=== PATIENT | male | born 1990 | race Caucasian/White ===

== ENCOUNTER 2019-01-31 14:05 | Emergency (ER) | payer OTHER ==
[2019-01-31 16:00] VITALS: BP 121/90
--- NOTE | 2019-01-31 16:55 | UC ---
Lower Extremity/Ankle HPI - HPI Summary HPI Summary: 28 y/o male presents to the urgent care c/o B/l posterior lower leg pain s/p work out w/ leg exercises at the [facility] 3 days ago. Pt reports he did 3 sets of exercises w/ his lower lower legs 3 days ago. He was sore after that, but was able to walk. yesterday he did some work out on the Bike and he was very sore after he finished. Then, after sitting for 45 min, he couldn't stand up due to severe pain. He applied some OTC topical oint for pain and massage. When he woke up this morning, he couldn't walk well due to severe pain. He has some relief when he walks by tip toes and w/ his knee bended. Pain is 9/10 when he touches his B/l lower legs or straightens his legs or tries to stand up. Pt denies numbness or tingling sensation over the lower extremities, SOB, chest pain, abdominal pain, N/V/D. - History of Current Complaint Chief Complaint: UCLowerExtremity Stated Complaint: LEG INJURY Time Seen by Provider: 01/31/19 16:41 Hx Obtained From: Patient Onset/Duration: Gradual Onset, Lasting Days - 1 day, Still Present, Worse Since - this morning unable to walk well do to pain Severity Initially: Mild Severity Currently: Moderate Pain Intensity: 9 Pain Scale Used: 0-10 Numeric Aggravating Factor(s): Standing, Ambulation Alleviating Factor(s): Rest, Elevation Able to Bear Weight: Yes - but walks tip toe - Risk Factors Gout Risk Factors: Negative DVT Risk Factors: Negative Septic Arthritis Risk Factor: Negative - Allergies/Home Medications Allergies/Adverse Reactions: Allergies Allergy/AdvReac Type Severity Reaction Status Date / Time No Known Allergies Allergy Verified 01/31/19 16:01 Home Medications: Home Medications Biotin 1,000 mcg PO DAILY 01/31/19 [History Confirmed 01/31/19] Cetirizine* [ZyrTEC 10 MG TAB*] 10 mg PO DAILY 01/31/19 [History Confirmed 01/31] PMH/Surg Hx/FS Hx/Imm Hx Previously Healthy: Yes - Pt denies PMHX - Surgical History Surgical History: Yes Surgery Procedure, Year, and Place: wisdom teeth - Family History Known Family History: Positive: Hypertension, Diabetes - Social History Occupation: Employed Full-time Lives: With Family Alcohol Use: Weekly Substance Use Type: Cocaine, Marijuana Smoking Status (MU): Current Some Day Smoker Review of Systems All Other Systems Reviewed And Are Negative: Yes Constitutional: Positive: Negative Skin: Positive: Negative Eyes: Positive: Negative ENT: Positive: Negative Respiratory: Positive: Negative Cardiovascular: Positive: Negative Gastrointestinal: Positive: Negative Genitourinary: Positive: Negative Motor: Positive: Negative Neurovascular: Positive: Negative Musculoskeletal: Positive: Decreased ROM - B/L lower leg, Other: - severe b/L lower leg pain s/p work out Neurological: Positive: Negative Psychological: Positive: Negative Is Patient Immunocompromised?: No Physical Exam - Summary Physical Exam Summary: Vital Signs Reviewed: Yes Appearance: Well-Appearing, No Pain Distress, Well-Nourished,male sitting in the examining table w/o any apparent pain distress Eyes: Positive: Conjunctiva Clear - PERRLA< PAOLO, fundi grossly WNL ENT: Positive: Normal ENT inspection, Hearing grossly normal, Pharynx normal, TMs normal, Uvula midline Neck: Positive: Supple, Nontender, No Lymphadenopathy Respiratory: Positive: Chest non-tender, Lungs clear, Normal breath sounds, No respiratory distress Cardiovascular: Positive: RRR, No Murmur, Pulses Normal, Brisk Capillary Refill Abdomen Description: Positive: Nontender, No Organomegaly, Soft. Negative: CVA Tenderness (R), CVA Tenderness (L) Bowel Sounds: Positive: Present Extremities: B/L extremity without deformity or asymmetry when compared. No soft tissue swelling or edema. No overlying erythema, warmth, discoloration. No lesions or break in skin integrity. Diameter of calves same. Soft tissues of posterior lower legs are soft, supple, w/ severe tenderness on palpation of both lower posterior calves. No palpable cords or evidence of thrombophlebitis. No evidence of gangrene. Medial thigh or posterior is without soft tissue swelling or tender to palpation. Positive Homans sign. No proximal lymphangitis or lymphadenopathy. Positive sensation over B/l lower legs, positive pulses, capillary refill intact and brisk. Neurological Exam: Normal Psychological Exam: Normal Skin Exam: Normal Triage Information Reviewed: Yes Vital Signs: Initial Vital Signs Temp 98.4 F 01/31/19 15:54 Pulse 81 01/31/19 15:54 Resp 16 07/10/19 15:54 BP 121/90 01/31/19 15:54 Pulse Ox 99 01/31/19 15:54 Lower Extremity Course/Dx - Course Course Of Treatment: 28 y/o male presents to the urgent care c/o B/l posterior lower leg pain s/p leg work out exercises at the [facility] 3 days ago. Pt reports he did 3 sets of exercises w/ his lower lower legs 3 days ago. He was sore after that, but was able to walk. yesterday he did some work out on the Bike and he was very sore after he finished. Then, after sitting for 45 min, he couldn't stand up due to severe pain. He applied some OTC topical oint for pain and massage. When he woke up this morning, he couldn't walk well due to severe pain. He has some relief when he walks by tip toes and w/ his knee bended. Pain is 9/10 when he touches his B/l lower legs or straightens his legs or tries to stand up. Pt denies numbness or tingling sensation over the lower extremities, SOB, chest pain, abdominal pain, N/V/D. Hx obtained. Pt w/B/L extremity without deformity or asymmetry when compared. No soft tissue swelling or edema. No overlying erythema, warmth, discoloration. No lesions or break in skin integrity. Diameter of calves same. Soft tissues of posterior lower legs are soft, supple , w/ severe tenderness on palpation of both lower posterior calves. No palpable cords or evidence of thrombophlebitis. No evidence of gangrene. Medial thigh or posterior is without soft tissue swelling or tender to palpation. Positive Homans sign. No proximal lymphangitis or lymphadenopathy. Positive sensation over B/l lower legs, positive pulses, capillary refill intact and brisk on examination. Due to Pt's severe pain I think Pt needs a higher level of care to r/o rhabdomyolis vs compartment syndrome. There is the possibility of severe muscle strain. Also I think At his age DVT is less likely. UA ordered; trace blood. Pt's symptoms discussed w/ Dr Herbert who evaluated PT and agrees Pt should go to the ER for further evaluation and treatment. Pt educated on Rhabdomyolisis and Compartment syndrome and importance to rule them out since he is concerned on the cost of the ER visit. Pt also offered Ambulance transferred and he declined. He was also offered crutches and he declined. Pt then stated he will go to the ER by private car after talking to his mother. Pt left the clinic hemodynamically stable, A&OX3 and ambulating. - Differential Dx/Diagnosis Differential Diagnosis/HQI/PQRI: Compartment Syndrome, Contusion, Sprain, Strain , Tendonitis, Other - muscle strain. Rhabdomyolisis Provider Diagnosis: Bilateral lower extremity pain Discharge - Sign-Out/Discharge Documenting (check all that apply): Patient Departure All imaging exams completed and their final reports reviewed: No Studies - Discharge Plan Condition: Stable Disposition: HOME-RECOMMEND TO ED Patient Education Materials: Rhabdomyolysis (ED), Leg Pain (ED) Referrals: [facility] [Outside] - 1 Day Additional Instructions: I think you need a higher level or care for your presenting symptoms due to your severe b/l lower leg pain. I highly recommend you to go to the ER for further evaluation and treatment. The risks of not going can be , Rhabdomyolysis, kidney failure, or compartment syndrome. - Billing Disposition and Condition Condition: STABLE Disposition: Home-Recommend to ED
[2019-01-31] MEDS ORDERED: Ibuprofen TAB* 400 MG PO ONE (17:21)
== END 2019-01-31 18:06 | disposition home health service (06) ==
LOC: UCEAST 14:05
DX: M79.662 Pain in left lower leg (principal); M79.661 Pain in right lower leg; F17.210 Nicotine dependence, cigarettes, uncomplicated
CPT/HCPCS: 81003; 99202; A9270-GY; G0463

== ENCOUNTER 2019-01-31 19:09 | Observation (INO) | payer OTHER ==
--- NOTE | 2019-01-31 20:01 | ED ---
Lower Extremity - HPI Summary HPI Summary: Pt is a 28 y/o M presenting to the ED with a chief complaint of pain in the bilateral posterior knees onset yesterday, 01/30/19. He states he was doing leg workouts this week, starting on 01/29/19, and did another on 01/30/19. He thought he was fine, then went to lunch where he sat for about 45 minutes, and then he could not stand afterwards d/t pain behind his knees. Icy Hot patches and icing the area does not work, and he went to this morning, who sent him here to rule out rhabdomyolysis. He denies pain anywhere else, rashes, burning, numbness, or tingling. He reports some slight decreased ROM along with myalgia behind his bilateral knees , rated at a 9/10 when he is standing. Dorsiflexion increases the pain, rest decreases the pain. - History of Current Complaint Chief Complaint: EDExtremityLower Stated Complaint: PAIN IN LEGS, FROM CC PER PT Time Seen by Provider: 01/31/19 19:45 Hx Obtained From: Patient Mechanism Of Injury: Unknown Onset of Pain: Days Onset/Duration: Still Present Severity Initially: Moderate Severity Currently: Severe Pain Intensity: 8 Pain Scale Used: 0-10 Numeric Timing: Constant, Lasting Days Location: Is Discrete @ - behind bilateral knees, proximal calves Associated Signs And Symptoms: Positive: Knee Pain. Negative: Bruising Aggravating Factor(s): Ambulation Alleviating Factor(s): Rest Able to Bear Weight: Yes - with trouble - Allergies/Home Medications Allergies/Adverse Reactions: Allergies Allergy/AdvReac Type Severity Reaction Status Date / Time No Known Allergies Allergy Verified 01/31/19 16:01 PMH/Surg Hx/FS Hx/Imm Hx Previously Healthy: Yes Endocrine/Hematology History: Denies: Hx Diabetes Cardiovascular History: Denies: Hx Hypertension - Surgical History Surgery Procedure, Year, and Place: wisdom teeth - Immunization History Date of Tetanus Vaccine: unk Date of Influenza Vaccine: unk Infectious Disease History: No Infectious Disease History: Denies: Traveled Outside the [place] in Last 30 Days - Family History Known Family History: Positive: Hypertension, Diabetes - Social History Occupation: Student Alcohol Use: Weekly Hx Substance Use: Yes Substance Use Type: Reports: Cocaine, Marijuana Hx Tobacco Use: Yes Smoking Status (MU): Current Some Day Smoker Review of Systems Positive: Myalgia, Decreased ROM. Negative: Edema Negative: Rash, Bruising Negative: Numbness All Other Systems Reviewed And Are Negative: Yes Physical Exam - Summary Physical Exam Summary: Appearance: Well-appearing, Well-nourished, lying in bed comfortable Skin: Warm, dry, no obvious rash Eyes: sclera anicteric, no conjunctival pallor ENT: mucous membranes moist Neck: deferred Respiratory: No signs of respiratory distress Cardiovascular: Appears well perfused, pulses are nml Abdomen: deferred Musculoskeletal: There is localized tenderness over the proximal calf. The muscle is soft, there are no surface changes or edema of the legs, and pulses in the feet are nml. Neurological: Awake and alert, mentation is normal, speech is fluent and appropriate Psychiatric: affect is normal, does not appear anxious or depressed Triage Information Reviewed: Yes Vital Signs On Initial Exam: Initial Vitals Temp Pulse Resp BP Pulse Ox 99.1 F 82 18 144/98 99 01/31/19 19:11 01/31/19 19:11 01/31/19 19:11 01/31/19 19:11 01/31/19 19:11 Vital Signs Reviewed: Yes Diagnostics - Vital Signs Vital Signs Temp Pulse Resp BP Pulse Ox 01/31/19 19:11 99.1 F 82 18 144/98 99 - Laboratory Result Diagrams: 01/31/19 20:23 01/31/19 20:23 Lab Statement: Any lab studies that have been ordered have been reviewed, and results considered in the medical decision making process. - Ultrasound DVT US Ultrasound Interpretation Completed By: Radiologist Summary of Ultrasound Findings: No bilateral LE DVT. ED physician has reviewed this report. Lower Extremity Course/Dx - Course Course Of Treatment: Pt is a 28 y/o M presenting to the ED with a chief complaint of pain in the bilateral posterior knees onset yesterday, 01/30/19. He denies pain anywhere else, rashes, burning, numbness, or tingling. He reports some slight decreased ROM along with myalgia behind his bilateral knees, rated at a 9/10 when he is standing. Dorsiflexion increases the pain, rest decreases the pain. On exam, the pt has localized tenderness over the proximal calf. The muscle is soft, there are no surface changes or edema of the legs, and pulses in the feet [place] [address]. 2205 - I spoke with Dr. Luu who will be accepting the pt to [facility] with a dx of rhabdomyolysis. DVT US shows no bilateral LE DVT. - Diagnoses Provider Diagnoses: Rhabdomyolysis Discharge - Sign-Out/Discharge Documenting (check all that apply): Patient Departure Patient Received Moderate/Deep Sedation with Procedure: No - Discharge Plan Condition: Stable Disposition: ADMITTED TO [facility] - Billing Disposition and Condition Condition: STABLE Disposition: Admitted to [facility] - Attestation Statements Document Initiated by Nemoibe: Yes Documenting Scribe: Yin Buckley Provider For Whom Jacy is Documenting (Include Credential): Cedrick Goff MD. Scribe Attestation: Yin Person, scryennyed for Cedrick Goff MD. on 02/01/19 at 0455. Scribe Documentation Reviewed: Yes Provider Attestation: The documentation as recorded by the scribe, Yin Buckley accurately reflects the service I personally performed and the decisions made by me, Cedrick Goff MD. Status of Scribe Document: Viewed Consult Consult: 2205 - I spoke with Dr. Luu about the pt's present condition. He states he will be accepting the pt to [facility] with dx of rhabdomyolysis.
[2019-01-31 20:31] LABS: ABS Basophils 0.1 10^3/ul (0-0.2); ABS Eosinophils 0.2 10^3/ul (0-0.6); ABS Lymphocytes 1.8 10^3/ul (1.0-4.8); ABS Monocytes 0.6 10^3/ul (0-0.8); ABS Neutrophils 4.8 10^3/ul (1.5-7.7); Eosinophil % 2.9 %; Hematocrit 45 % (42-52); Hemoglobin 15.2 g/dL (14.0-18.0); Lymphocyte % 24.6 %; Mean Corpuscular HGB Conc 34 g/dL (31-36); Mean Corpuscular Hemoglobin 30 pg (27-31); Mean Corpuscular Volume 89 fL (80-94); Mean Platelet Volume 7.2 fL (7.4-10.4); Nucleated Red Blood Cells % 0.1; Platelet Count 358 10^3/uL (150-450); Red Blood Count 5.03 10^6 /uL (4.18-5.48); Red Cell Distribution Width 13 % (10-15); White Blood Count 7.5 10^3/uL (3.5-10.8)
[2019-01-31 20:46] LABS: BUN/Creatinine Ratio 18.3 (8-20); Calcium 9.5 mg/dL (8.6-10.3); EGFR African American 116.2 (>60); EGFR Non-African American 96.1 (>60); Potassium 3.8 mmol/L (3.5-5.0)
[2019-01-31] MEDS ORDERED: Sodium Bicarbonate 8.4% IV* 150 MEQ in D5W 1000 ML BAG* 1,000 ML IV ONE (22:00)
[2019-01-31] MEDS ORDERED: D5W 1000 ML BAG* 1,000 ML ONE (22:06)
[2019-01-31] MEDS: NS 0.9% 1000 ML** 3,000 ML IV ONE (22:07)
[2019-01-31] MEDS ORDERED: Acetaminophen TAB* 325 MG PO PRN (22:52)
[2019-02-01] MEDS: NS 0.9% 1000 ML** 1,000 ML IV SCH ×3 (00:30→13:16)
[2019-02-01] MEDS: NS 0.9% 1000 ML** 3,000 ML IV ONE ×2 (00:31→02:00)
[2019-02-01 06:53] LABS: ABS Basophils 0.1 10^3/ul (0-0.2); ABS Eosinophils 0.2 10^3/ul (0-0.6); ABS Lymphocytes 2.3 10^3/ul (1.0-4.8); ABS Monocytes 0.6 10^3/ul (0-0.8); ABS Neutrophils 3.3 10^3/ul (1.5-7.7); Eosinophil % 3.2 %; Hematocrit 39 % (42-52); Hemoglobin 13.5 g/dL (14.0-18.0); Mean Corpuscular HGB Conc 34 g/dL (31-36); Mean Corpuscular Hemoglobin 31 pg (27-31); Mean Corpuscular Volume 89 fL (80-94); Mean Platelet Volume 7.3 fL (7.4-10.4); Platelet Count 290 10^3/uL (150-450); Red Blood Count 4.38 10^6 /uL (4.18-5.48); Red Cell Distribution Width 13 % (10-15); White Blood Count 6.5 10^3/uL (3.5-10.8)
[2019-02-01 07:10] LABS: BUN/Creatinine Ratio 19.4 (8-20); Calcium 8.5 mg/dL (8.6-10.3); EGFR African American 169.7 (>60); EGFR Non-African American 140.2 (>60); Potassium 3.8 mmol/L (3.5-5.0)
--- NOTE | 2019-02-01 09:24 | HP ---
CC: [facility] on [facility] ADMISSION HISTORY AND PHYSICAL: DATE OF ADMISSION: 01/31/19 CHIEF COMPLAINT: Leg pain. HISTORY OF PRESENT ILLNESS: Mr. Vásquez is a 28-year-old male with no past medical history who has be en visiting [place] for a summer academic session. He returned to the gym 2 days ago after some time away and did some upper and lower body workout on the 01/29/19 and another strenuous lower body weigh t lifting workout on 01/30/19. Earlier today on 01/31/19, he had severe pain behind both knees that were rated at 9/10 when weightbearing and vertical. Because he could barely walk, [facility] At the urgent care, there was concern if he had DVT verus rhabdo myolysis versus tendon strain and he was sent to the emergency department for further evaluation. Th e patient denies any history of leg pain of similar nature, although he has been sore after workouts in the past, which he considered normal. Denies any muscle disease or history of blood clots. There was no trauma to his legs. PAST MEDICAL HISTORY: None. PAST SURGICAL HISTORY: [place] teeth removal. MEDICATIONS ON ADMISSION: 1. Biotin [id number]. 2. Zyrtec 10 mg p.o. daily p.r.n. ALLERGIES: None. FAMILY HISTORY: Notable for mother and father alive and well. Maternal grandfather had a heart arrh ythmia and was on warfarin and the maternal grandmother had diabetes. 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 He is s ayse, but has a male partner with whom he is not monogamous. He states he wears condoms when he has other partners. No children. He smokes cigarettes socially. He drinks alcohol about 1 time per wee k and he has marijuana fairly regularly, but not daily. REVIEW OF SYSTEMS: The patient has had no fevers, weight loss, or anorexia. He did have a sore thro at, a strep throat 4 weeks ago and finished a course of penicillin about 3 weeks ago. The patient de nies any cough, hemoptysis, or shortness of breath. The patient denies any nausea, vomiting, or diar stacey. The patient denies any chest pain or palpitations. Remainder of the 14-point review of system s was negative other than mentioned in the HPI. PHYSICAL EXAMINATION GENERAL: He is alert, in no acute distress. VITAL SIGNS: Temperature is 37.7, pulse 82, respirations 18, blood pressure is 144/98 down to 107/63 , O2 sat is 94%. HEENT: Head is normocephalic and atraumatic. Sclerae anicteric. Pupils are equal, round, and react sonia to light and accommodation. Oropharynx is moist, no lesions. NECK: No JVD, no carotid bruits, no thyromegaly. LUNGS: Clear to auscultation and percussion bilaterally. HEART: Regular rate and rhythm without murmurs or gallops. ABDOMEN: Soft and nontender. Positive bowel sounds. No hepatosplenomegaly. EXTREMITIES: No peripheral edema. There is tenderness in the popliteal fossa and just distal to marcella t in both legs symmetrically. There is no erythema or edema noted in the lower extremities. SKIN: No rashes. NEUROLOGIC: Alert and oriented x3. Cranial nerves II through XII were intact. Motor strength is 5/5 throughout when supine in bed. All extremities are moving with equal power. LABORATORY DATA: Sodium 138, potassium 3.8, chloride 103, bicarb 27, BUN 17, creatinine 0.93, gluco se 113. White count 7.5, hemoglobin 15.2, hematocrit 45%, platelets are 358, CPK is 15,044. Lower e xtremity Doppler is negative for DVT in both lower extremities. ASSESSMENT AND PLAN: A 28-year-old man presenting with rhabdomyolysis after a strenuous workout. He may have some genetic predisposition to this, although it has not occurred in the past. He may simp ly have overdone his workouts extremely and needs to go more slowly the next time that he returns to the gym. In any case, the patient will be admitted due to the risk of renal failure from rhabdomyoly sis. He has had 1 L of bicarbonate solution in the emergency department to alkalize his urine and he can continue on intravenous normal saline at a brisk rate to try to prevent any acute tubular necrosi s in the kidneys. I will check a CK and kidney enzymes again in the morning and we will follow this daily as long as he is here. The patient was advised he may be here 1 or 2 days or longer to assure t hings come out alright. Code status is full. DVT prophylaxis will be with early ambulation. [id number]/[facility] #: [id number]
[2019-02-01 10:03] LABS: HIV 4th Generation Negative (Negative)
[2019-02-01 11:45] VITALS: BP 131/71
--- NOTE | 2019-02-01 15:09 | CONS ---
CONSULTATION REPORT: DATE OF CONSULTATION: 02/01/19 ATTENDING ORTHOPEDIC PROVIDER: Freddy Vincent MD CHIEF COMPLAINT: Bilateral lower extremity pain. HISTORY OF PRESENT ILLNESS: Mr. Vásquez is a 28-year-old male who presented to [facility] on 01/[facility]19 with a complaint of bilateral calf pain following workouts done on 01/29/19 and 01/30/19. He states that on 01/29/19, he did a strenuous lower extremity lifting workout including calf raises, hamstring curls, and quad extension. 01/30 he rode the exercise bike followed by sitting for lunch, after which he was unable to stand up without severe pain in both calves. He was eventually able to walk home though had to walk gently and on his toes to avoid extreme pain in both calves. On 01/31/19, he went to urgent care and he was sent to the emergency room for further evaluation, where he was admitted and diagnosed with rhabdomyolysis. Orthopedics has been consulted to rule out compartment syndrome. Today, the patient states that pain is dramatically decreased from yesterday. At rest, both calves are non- painful. With active stretch or with standing, he has soreness rated at 3/10. He continues to feel most comfortable walking on his toes as when walking his normal gait, he has a sore stretching pain in both calves. He has no numbness or tingling of the lower extremities. There is no history of trauma to the lower extremities. PAST MEDICAL HISTORY: None. PAST SURGICAL HISTORY: [place] tooth extraction. MEDICATIONS: 1. Biotin. 2. Zyrtec 10 mg daily p.r.n. ALLERGIES: No known drug allergies. FAMILY HISTORY: Mother and father alive and well. SOCIAL HISTORY: Alcohol 1 time per week. Regular marijuana use, but not daily. Smokes cigarettes socially. At [place] for the summer for a criticism series. 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 REVIEW OF SYSTEMS: General: Negative for fever, chills, or recent illness. HEENT: Negative for any headache, changes in vision, or head trauma. Cardiac: No chest pain or history of IL. Respiratory: No shortness of breath. Abdomen: No abdominal pain, nausea, vomiting, or diarrhea. : No dysuria. Musculoskeletal: Positive for bilateral calf pain. Neuro: Sensation is intact throughout all extremities without any numbness or any paraesthesias. Hematology: No history of blood clot. Skin: No rash or lesions. PHYSICAL EXAM: Vital Signs: Temperature 98.8, pulse rate 67, respiratory rate 20, oxygen saturation 100% on room air, blood pressure 121/71. General: The patient appears well, in no acute distress, sitting comfortably in bed. Respiratory: Normal rate and effort of breathing. Abdomen: Nondistended and nontender. Musculoskeletal: Bilateral upper extremities; skin envelope intact, no obvious deformity, nontender to palpation, active flexion and extension of digits, wrists, elbows, and shoulders without any pain. Bilateral lower extremities; skin envelope is intact, no obvious bony deformity. Extremities are warm, supple, and well perfused. All compartments of bilateral lower legs are compressible with only mild tenderness with deep palpation of the calves. Upper leg compartments also all compressible and nontender. The patient has full passive flexion and extension at MTPs, ankles, knees, and hips without any pain whatsoever. He is also able to actively flex and extend through full range of motion MTPs, ankles, knees, and hips with tight stretching sensation experienced with ankle dorsiflexion, but no pain. Sensation is intact to light touch throughout bilateral lower extremities. Capillary refill is less than 2 seconds throughout bilateral lower extremities. There is no mottling. DP, PT, and popliteal pulses are 2+ and easily palpable bilaterally. The patient is able to stand flat footed at the bedside with minimal discomfort in the calves. DIAGNOSTIC STUDIES/LAB DATA: Venous Doppler of bilateral lower extremities was negative for DVT. Labs: Hemoglobin 13.5, hematocrit 39. Sodium 141, potassium 3.8. Total CK 10, 421. Creatinine 0.67, GFR 140. ASSESSMENT: Rhabdomyolysis without evidence for compartment syndrome. PLAN: The patient can be weightbearing as tolerated. He should continue IV fluids as directed by Medicine. He should continue increased p.o. fluid intake. Follow with Orthopedic in [address] Vincent, sooner with concerns or worsening of symptoms. ARNAUD HUTCHINSON [id number]/[facility] #: [id number] [facility] HOSPITALMatthew
--- NOTE | 2019-02-01 17:41 | DS ---
ADDENDUM NOW INCLUDED ON THIS REPORT CC: [facility]; Dr. Jose Evans * DISCHARGE SUMMARY: DATE OF ADMISSION: 01/31/19 DATE OF DISCHARGE: 02/01/19 PRIMARY CARE PROVIDER: [facility]. MY ATTENDING WHILE IN THE HOSPITAL: Dr. Jose Evans.* (DICTATED BY ARNAUD MERRILL) CHIEF COMPLAINT: Rhabdomyolysis, bilateral lower extremity pain. SECONDARY DISCHARGE DIAGNOSIS: None. STUDIES DONE WHILE IN THE HOSPITAL: Lower extremity venous Doppler study from 01/31/19 read as no bilateral lower extremity deep vein thrombosis. MEDICATIONS AT DISCHARGE: 1. Zyrtec 10 mg p.o. daily as needed. 2. Biotin 1000 mcg p.o. daily. 3. Tylenol 650 mg p.o. q.4 hours as needed. NEW MEDICATIONS AT DISCHARGE: Tylenol. MEDICATIONS DISCONTINUED ON DISCHARGE: None. HOSPITAL COURSE: This is a brief summary of the patient's presentation. For more details, please see the history and physical from Dr. Luis Armando Luu on 06/12. In brief, the patient is a 28-year-old male with no significant past medical history, who recently had significantly increased his exercise regimen, having added in lower body workout with weightlifting, which he did very strenuously 2 days ago and then on the morning of 01/31/19, biked on stationary bike for approximately half an hour, but that was almost not present when resting, worse with dorsiflexion. The patient could barely walk, went to the urgent care and was referred to the emergency department for concern of rhabdomyolysis. In the emergency department, the patient was found to have a creatinine kinase of approximately 15,000. There was some concern for compartment syndrome in the emergency department, but that is low clinical suspicion. The patient was admitted to the hospital, was started on fluids. The patient's creatinine kinase declined from 15,000 to 10,000. Over the course of several hours, the patient's pain decreased significantly. The patient was able to walk to the bathroom and back numerous times. The patient felt very well. The patient had no renal dysfunction. The patient felt like he was ready to go home. The patient was stable enough for discharge on 02/01/19. PHYSICAL EXAMINATION ON THE DAY OF DISCHARGE: General: The patient is a 28- year- old male who appears stated age and is sitting comfortably in the bed, in no acute distress. Vital signs: At the time of evaluation, temperature 98.8, pulse rate 67, respiratory rate 20, oxygen saturation 100% on room air, blood pressure 131/71. HEENT: Head: Normocephalic, atraumatic. Sclerae anicteric. No conjunctival injection. Nasal mucosa moist. Oral mucosa moist. No pharyngeal erythema, discharge, or exudate. Neck: Supple and nontender. No lymphadenopathy. No carotid bruits auscultated. No JVD. Cardiac: Regular rate and rhythm. No clicks, murmurs, gallops, or rubs. Pulses are 2+ in the bilateral dorsalis pedis, posterior tibialis and radial areas. Respiratory: Clear to auscultation bilaterally. No wheezes, rales, or rhonchi. Good air exchange bilaterally. Abdomen: Soft, nontender, nondistended. Bowel sounds present. Normoactive in all 4 quadrants. No hepatosplenomegaly. No abdominal bruits auscultated. No hepatojugular reflux. Genitourinary: No suprapubic or CVA tenderness. Skin: Clean, dry and intact. No rash. Neuro: Cranial nerves II through XII intact. No focal deficits. Alert and oriented x3. Musculoskeletal: Bilateral calves tender to palpation, fluid collection palpated in the posterior aspect of the right calf. Pain with dorsiflexion on bilateral feet. Calves not tense. DISCHARGE PLAN: The patient will be discharged to home. The patient has been encouraged to drink large volume of fluids which he feels capable of doing, is not having nausea, vomiting or other limiting factor in this regard. The patient should follow up with the [facility] or [facility] within 1 week. The patient should follow up with Orthopedics within this time as well. The patient should return to the hospital for worsening in his pain, oliguria or anuria, passing out, chest pain, shortness of breath, or other alarming symptoms. The patient should have a regular unrestricted diet. Engage in activity as tolerated. Avoiding excessive exercise in the short term and escalating slowly up subsequent exercise regimens. The patient had no JESSICA throughout his hospitalization and was stable for discharge to home. The patient should follow up CK and BMP at followup appointment at the discretion of the outpatient provider. TIME SPENT: Approximately 60 minutes was spent on the discharge of this patient , 30 of which were spent [id number] with the patient, obtaining my history and physical, and discussing my treatment plan. ARNAUD MERRILL ADDENDUM: The patient has a Shirley score of 0, indicating a less than 3% risk of , JESSICA requiring renal replacement therapy, and did not require further monitoring in the hospital for safe discharge based on no poor prognosis factors. ARNAUD MERRILL [id number]/[facility] #: [id number]/CPS #: [id number] FRANCIS
--- NOTE | 2019-02-01 18:31 | DS ---
DISCHARGE SUMMARY: ADDENDUM: The patient has a Shirley score of 0, indicating a less than 3% risk of , JESSICA requiring renal replacement therapy, and did not require further monitoring in the hospital for safe discharge based on no poor prognosis factors. ARNAUD MERRILL [id number]/[facility] #: [id number] FRANCIS
--- NOTE | 2019-02-03 21:37 | CONSULT ---
Consult Consult: Agree with consultation note by ARNAUD Craig, on 02/01/19. No evidence of compartment syndrome by report. We recommend aggressive hydration for the rhabdomyolysis and follow up with me in clinic in approximately 1 week.
== END 2019-02-01 16:15 | disposition home or self-care (01) ==
LOC: ED 19:09 → MED 22:51 → INTOOBSV 22:51
PROVIDERS: ADMIT Internal Medicine; ATTEND Internal Medicine
DX: M62.82 Rhabdomyolysis (principal); M79.605 Pain in left leg; M79.604 Pain in right leg; Z72.0 Tobacco use
CPT/HCPCS: 36415; 80048; 82550; 83605; 85025; 87389; 93970; 96361; 96365; 96366; 99284; G0378; J7060